=== PATIENT | female | born 1975 | race Caucasian/White ===

== ENCOUNTER 2022-07-25 05:59 | Day surgery (SDC) | payer MEDICARE, MEDICAID ==
[~2022-07-25] VITALS: Ht 170.2 cm; Wt 91.7 kg
[2022-07-25] VITALS (10 sets, daily range): BP systolic 123–149; BP diastolic 78–87
[~2022-07-25 05:59] MED LIST: BUPR300T86 PO; CHLO25TA10 PO; LOSA100T57 PO; LURA40TA2 PO; famotidine 20mg tablet PO ONE; oxymetazoline 15 ML nasal spray NS ONE; ringers solution, lacted 1,000 ML IV SCH; tranexamic acid inj. 1,000 MG in normal saline IV soln 100ML IV ONE
[2022-07-25] MEDS ORDERED: LIDOcaine 1% 30ml preserv. free vial ONE (06:43)
[2022-07-25] MEDS ORDERED: mupirocin 2% ointment 22GM ONE (06:44)
[2022-07-25] MEDS ORDERED: tranexamic acid 100mg/ml inj. ONE (06:44)
[2022-07-25] MEDS ORDERED: methylPREDNISolone acetate 80mg/ml inj**IM only ONE (06:44)
[2022-07-25] MEDS ORDERED: cocaine 4% topical solution 4ml bottle ONE (06:44)
[2022-07-25] MEDS ORDERED: epiNEPHrine 1 mg/ml inj ONE (06:44)
[2022-07-25] MEDS ORDERED: oxymetazoline 15 ML nasal spray NS ONE ×2 (06:45→08:58)
[2022-07-25] MEDS ORDERED: LIDOcaine 1% (10mg/ml) 2ml vial ONE (07:46)
[2022-07-25] MEDS ORDERED: sevoflurane 250ml liquid IH ONE (08:10)
[2022-07-25] MEDS ORDERED: midazolam 1 mg/ML 2ml injection ONE (08:18)
[2022-07-25] MEDS ORDERED: fentaNYL/PF 50MCG/1 ML 2ML syringe ONE (08:18)
[2022-07-25] MEDS ORDERED: triamcinolone acetonide 40mg/ml inj IM ONE (08:30)
[2022-07-25] MEDS ORDERED: triamcinolone acetonide 40mg/ml inj ONE ×2 (08:32→10:10)
[2022-07-25] MEDS ORDERED: ondansetron/PF 4mg/2ml inj IV PRN (08:35)
[2022-07-25] MEDS ORDERED: ringers solution, lacted 1,000 ML IV SCH (08:35)
[2022-07-25] MEDS ORDERED: HYDROmorphone/PF 0.2 MG/ML SYRINGE IV PRN ×2 (08:35)
[2022-07-25] MEDS ORDERED: meperidine/PF 25mg/ml syringe IV PRN ×2 (08:35)
[2022-07-25] MEDS ORDERED: LIDOcaine 1% w/EPI 1:100,000 30ml vial (MDV) IJ ONE (08:56)
[2022-07-25] MEDS ORDERED: cocaine 4% topical solution 4ml bottle TP ONE (09:00)
--- NOTE | 2022-07-25 10:35 | NUR ---
Received from OR via [facility], accompanied by Anesthesiologist DR ROJO and report given by Anesthesiolgist. PT IS GROGGY BUT ANSWERS QUESTIONS APPROPRIATELY AND FOLLOWS COMMANDS. PT PLACED ON BEDSIDE MONITOR, VSS. PT IS RECEIVING 10L O2 TO MASK AND TOLERATING WELL WITH O2 SAT > 96%. PT HAS COTTONOIDS TO BILAT NARES THAT ARE CDI. PT HAS 20G PIV TO RT UPPER ARM WITH LR INFUSING ORDERED. PT IS RESTING WITH NO S/S OF DISTRESS, PAIN AT TOLERABLE LEVEL AT THIS TIME. WILL CONTINUE TO ASSESS
[2022-07-25] MEDS ORDERED: ondansetron/PF 4mg/2ml inj ONE (10:55)
[2022-07-25] MEDS ORDERED: dexamethasone sod phosphate 4mg/ml inj. ONE (10:55)
[2022-07-25] MEDS ORDERED: LIDOcaine 1%/PF 5ML 10 MG/ML VIAL ONE (10:55)
[2022-07-25] MEDS ORDERED: propofol inj 20 ML IV ONE (10:55)
[2022-07-25] MEDS ORDERED: salt irrigation nasal spray 45 ML SPRAY NS PRN (11:00)
--- NOTE | 2022-07-25 12:10 | NUR ---
ALL DISCHARGE CRITERIA HAS BEEN MET. VSS, PAIN AT A TOLERABLE LEVEL, ABLE TO SAFELY AMBULATE AND TRANSFER SELF. IV TAKEN OUT WITHOUT ANY COMPLICATIONS. ALL DISCHARGE INSTRUCTIONS COVERED WITH PATIENT AND ALL QUESTIONS ANSWERED. PATIENT TAKEN OUT VIA WHEELCHAIR TO PERSONAL VEHICLE WHERE DROVE PATIENT HOME.
== END 2022-07-25 11:56 | disposition home or self-care (01) ==
LOC: PAS 05:59
PROVIDERS: ATTEND Otolaryngology
DX: J32.8 Other chronic sinusitis (principal); J34.3 Hypertrophy of nasal turbinates; J34.2 Deviated nasal septum; J34.89 Other specified disorders of nose and nasal sinuses; Z20.822 Contact with and (suspected) exposure to COVID-19; J33.8 Other polyp of sinus; I10 Essential (primary) hypertension; F32.A Depression, unspecified; F41.9 Anxiety disorder, unspecified; E66.9 Obesity, unspecified; Z68.31 Body mass index [BMI] 31.0-31.9, adult; F17.210 Nicotine dependence, cigarettes, uncomplicated; Z98.84 Bariatric surgery status; Z72.89 Other problems related to lifestyle; Z88.5 Allergy status to narcotic agent; Z79.899 Other long term (current) drug therapy
CPT/HCPCS: 30140; 30520; 31240; 31259; 31267; 31276; 36415; 61782; 82948; 87635; 88300; 88304; 88311; 93005; A6402; C2625; C9250; C9803; J0171; J1100; J2175; J2250; J2405; J2704; J3010; J3301; J3490; J7030; J7050; J7120; U0003; U0005; Z7506; Z7508; Z7512; A4618; A6449; A7000; J1040